=== PATIENT | male | born 1950 | race Hispanic/Latino ===

== ENCOUNTER 2020-11-23 08:52 | Observation (INO) | payer BC, OTHER ==
[~2020-11-23] VITALS: Ht 165.1 cm; Wt 89.8 kg
[~2020-11-23 08:52] MED LIST: ASPIR 8181 MG PO; CLINDAMYCIN HC300 MG PO; LAMISIL250 MG PO; LISINOPRIL40 MG PO; METOPROLOL SUCC50 MG PO; NIFEDIPINE XL30 MG PO; NIFEDIPINE10 MG PO; TRIAMTERENE-HCTZ1 EA PO
[2020-11-23 10:10] LABS: BASOPHILS % 0.2 % (0.0-1.0); EOSINOPHILS # (AUTO) 0.2 (0.0-0.4); EOSINOPHILS % 1.8 % (0.0-6.0); HEMATOCRIT 49.3 % (38.2-49.6); HEMOGLOBIN 16.1 g/dL (14.0-18.0); LYMPHOCYTES # (AUTO) 1.7 (1.0-3.2); LYMPHOCYTES % 19.1 % (18.0-39.1); MEAN CORPUSCULAR HEMOGLOBIN 28.5 pg (28-32); MEAN CORPUSCULAR HGB CONC 32.7 g/dL (31-35); MEAN CORPUSCULAR VOLUME 87.3 fL (81-99); MONOCYTES # (AUTO) 0.7 (0.2-0.8); MONOCYTES % 8.3 % (4.4-11.3); NEUTROPHILS # (AUTO) 6.3 (2.1-6.9); PLATELET COUNT 144 x10e3/uL (140-360); RED BLOOD COUNT 5.65 x10e6/uL (4.3-5.7); RED CELL DISTRIBUTION WIDTH 13.2 % (11.7-14.4)
[2020-11-23 10:18] LABS: INR 0.93
[2020-11-23 10:19] LABS: PARTIAL THROMBOPLASTIN TIME 30.1 seconds (23.8-35.5)
[2020-11-23 10:26] LABS: ALBUMIN 3.3 g/dL (3.5-5.0); ANION GAP 11.8 mmol/L (8-16); CALCIUM 8.7 mg/dL (8.4-10.2); CREATININE, SERUM 1.41 mg/dL (0.72-1.25); MAGNESIUM 1.9 MG/DL (1.3-2.1); POTASSIUM 3.8 mmol/L (3.5-5.1)
[2020-11-23 10:32] LABS: CREATINE KINASE MB 3.4 ng/mL (0-5.0)
[2020-11-23] MEDS ORDERED: ONDANSETRON HCL INJ 2MG/ML 2ML 2 MG/ML VIAL IV PRN (11:30)
[2020-11-23] MEDS ORDERED: MORPHINE SULFATE INJ 2 MG/ML SYR IV PRN (11:30)
[2020-11-23 16:00] VITALS: BP 162/76
[2020-11-23] MEDS ORDERED: DIOVAN160 MG PO (16:20)
[2020-11-23] MEDS ORDERED: ATORVASTATIN CA20 MG PO (16:20)
[2020-11-23] MEDS ORDERED: AMLODIPINE BESY10 MG PO (16:20)
[2020-11-23] MEDS ORDERED: ZETIA10 MG PO (16:20)
[2020-11-23] MEDS ORDERED: DOXAZOSIN MESYLA2 MG PO (16:20)
[2020-11-23] MEDS ORDERED: GLIMEPIRIDE2 MG PO (16:20)
[2020-11-23] MEDS ORDERED: CLOPIDOGREL75 MG PO (16:20)
[2020-11-23] MEDS ORDERED: LASIX20 MG PO (16:20)
[2020-11-23 17:55] LABS: CREATINE KINASE MB 2.3 ng/mL (0-5.0)
[2020-11-23 20:00] VITALS: BP 166/78
[2020-11-23 20:02] VITALS: BP 166/78
[2020-11-23] MEDS ORDERED: AMLODIPINE BESYLATE 10 MG TAB PO ONE (20:45)
[2020-11-23] MEDS ORDERED: VALSARTAN 160 MG TAB PO SCH (20:45)
[2020-11-23] MEDS: VALSARTAN 160 MG TAB PO SCH (21:14)
[2020-11-24] VITALS: BP 160/87
[2020-11-24 00:53] LABS: CREATINE KINASE MB 1.9 ng/mL (0-5.0)
[2020-11-24 04:00] VITALS: BP 146/87
[2020-11-24 05:03] LABS: BASOPHILS % 0.2 % (0.0-1.0); EOSINOPHILS # (AUTO) 0.2 (0.0-0.4); EOSINOPHILS % 1.8 % (0.0-6.0); HEMATOCRIT 47.9 % (38.2-49.6); HEMOGLOBIN 15.4 g/dL (14.0-18.0); LYMPHOCYTES # (AUTO) 1.4 (1.0-3.2); LYMPHOCYTES % 13.9 % (18.0-39.1); MEAN CORPUSCULAR HEMOGLOBIN 28.4 pg (28-32); MEAN CORPUSCULAR HGB CONC 32.2 g/dL (31-35); MEAN CORPUSCULAR VOLUME 88.2 fL (81-99); MONOCYTES # (AUTO) 0.8 (0.2-0.8); NEUTROPHILS # (AUTO) 7.8 (2.1-6.9); NEUTROPHILS % 75.6 % (38.7-80.0); PLATELET COUNT 127 x10e3/uL (140-360); RED BLOOD COUNT 5.43 x10e6/uL (4.3-5.7); RED CELL DISTRIBUTION WIDTH 13.2 % (11.7-14.4)
[2020-11-24 05:20] LABS: ALBUMIN 2.9 g/dL (3.5-5.0); ANION GAP 11.8 mmol/L (8-16); CALCIUM 8.4 mg/dL (8.4-10.2); CHOL/HDL RATIO 3.1 (3.9-4.7); CREATININE, SERUM 1.23 mg/dL (0.72-1.25); POTASSIUM 3.8 mmol/L (3.5-5.1)
[2020-11-24] MEDS: VALSARTAN 160 MG TAB PO SCH (08:02)
[2020-11-24 08:10] VITALS: BP 167/83
[2020-11-24 08:45] VITALS: BP 167/83
[2020-11-24] MEDS ORDERED: AMLODIPINE BESYLATE 10 MG TAB PO SCH (09:00)
[2020-11-24] MEDS ORDERED: METOPROLOL SUCCINATE 50 MG TAB XL PO SCH (09:00)
[2020-11-24] MEDS ORDERED: ASPIRIN 81 MG ENTERIC COATED PO SCH (09:00)
== END 2020-11-24 09:24 | disposition home or self-care (01) ==
LOC: ER 09:37 → ERHOLD 12:37 → MED/SURG2 15:15
PROVIDERS: ADMIT Internal Medicine; ATTEND Internal Medicine
DX: R07.89 Other chest pain (principal); I16.0 Hypertensive urgency; Z20.822 Contact with and (suspected) exposure to COVID-19
CPT/HCPCS: 36415 ×2; 71045; 80053 ×2; 80061; 82550 ×2; 82553 ×2; 82948 ×2; 83690; 83735; 83880; 84484 ×2; 85025 ×2; 85610; 85730; 93005; 99284; G0378 ×2; J2270; U0002

== ENCOUNTER → 2022-02-14 | Outpatient (CLI) | payer OTHER ==
[~2022-02-14] MED LIST changes: +AMLODIPINE BESY10 MG PO; +ATORVASTATIN CA20 MG PO; +CLOPIDOGREL75 MG PO; +DIOVAN160 MG PO; +DOXAZOSIN MESYLA2 MG PO; +GLIMEPIRIDE2 MG PO; +LASIX20 MG PO; +ZETIA10 MG PO
[2022-02-14 08:14] LABS: HEMOGLOBIN 12.9 g/dL (14.0-18.0)
[2022-02-14 08:31] LABS: INR 0.87; PROTHROMBIN TIME 12.6 seconds (11.9-14.5)
[2022-02-14 08:32] LABS: PARTIAL THROMBOPLASTIN TIME 29.2 seconds (23.8-35.5)
== END ==
LOC: CT 07:44
PROVIDERS: ATTEND Student in an Organized Health Care Education/Training Program
DX: N18.4 Chronic kidney disease, stage 4 (severe) (principal); Z20.822 Contact with and (suspected) exposure to COVID-19
CPT/HCPCS: 36415; 85014; 85049; 85610; 85730; U0002

== ENCOUNTER → 2022-02-21 | Outpatient (CLI) | payer OTHER ==
[~2022-02-21] MED LIST changes: +FENTANYL CITRATE/PF 100MCG/2 ML INJ ONE; +HYDRALAZINE HCL 20 MG/ML VIAL ONE; +MIDAZOLAM HCL 2 MG/2 ML VIAL ONE
== END ==
LOC: CT 07:43
PROVIDERS: ATTEND Student in an Organized Health Care Education/Training Program
DX: N18.4 Chronic kidney disease, stage 4 (severe) (principal)
CPT/HCPCS: 50200; 76942; 93005; J0360; J2250; J3010